=== PATIENT | female | born 1990 | race Asian ===

== ENCOUNTER 2025-04-15 12:04 | Emergency (ER) | payer OTHER, SELFPAY ==
[2025-04-15 12:11] VITALS: BP 140/76; PULSE 106; RESP 22; TEMP 37.1; O2SAT 96; BMI 27.8
--- NOTE | 2025-04-15 12:23 | DI.RAD.S_ITS ---
PROCEDURE: XR CHEST 1V INDICATIONS: sob TECHNIQUE: One view of the chest was acquired. COMPARISON: None. FINDINGS: Surgical changes and devices: None. Lungs and pleura: Lungs are clear. No pleural effusions or pneumothorax. Mediastinum: Mediastinal contours appear normal. Heart size is normal. Bones and chest wall: No suspicious bony lesions. Overlying soft tissues appear unremarkable. IMPRESSION: No acute cardiopulmonary abnormality is seen. Dictated by: Nathaniel Bosch M.D. on 04/15/2025 at 12:55 Approved by: Nathaniel Bosch M.D. on 04/15/2025 at 12:56
--- NOTE | 2025-04-15 12:41 | ED.SOB ---
HPI - SOB/Dyspnea <Adryan Sweeney, DO - Last Filed: 04/15/25 13:18> General Chief Complaint: Shortness of Breath/Dyspnea Stated Complaint: SOB, high BP, congestion, body pain Time Seen by Provider: 04/15/25 12:22 Source: patient Mode of arrival: Ambulatory History of Present Illness HPI Narrative: 34-year-old female presents with cough congestion headache sore throat unrelieved with Sudafed the started yesterday. Patient denies any sick contacts, fever, chills, body aches, nausea, vomiting, diarrhea, abdominal pain, urinary complaints. Other than what is stated 14 point review of system is negative. Related Data Previous Rx's ?Medication ?Instructions ?Recorded albuterol sulfate 90 mcg/actuation 1 inh inhalation Q4-6H PRN 04/15/25 breath activated powder inhaler shortness of breath or wheezing #1 ea prednisone 20 mg tablet 40 mg (2 x 20 mg) PO DAILY 5 days 04/15/25 #10 tabs Allergies Allergy/AdvReac Type Severity Reaction Status Date / Time No Known Drug Allergies Allergy Verified 04/15/25 12:11 Review of Systems <Adryan Sweeney, DO - Last Filed: 04/15/25 13:18> Review of Systems ROS Unobtainable: All systems reviewed & are unremarkable except as noted in HPI and below Patient History <Adryan Sweeney, DO - Last Filed: 04/15/25 13:18> Social History Smoking Status: Never smoker Smoking Status: Never smoker Exam <Adryan Sweeney, DO - Last Filed: 04/15/25 13:18> Narrative Exam Narrative: GENERAL: [34] year old patient appears stated age. Well-developed patient, in mild distress. HEAD: Atraumatic. Normocephalic. EYES: Pupils equal round and reactive. Extraocular motions intact. No scleral icterus. No injection or drainage. ENT: Nose without bleeding, purulent drainage. Throat without erythema, tonsillar hypertrophy or exudate. Airway patent. NECK: Trachea midline. Non tender CARDIOVASCULAR: Regular rate and rhythm without murmurs, gallops, or rubs. RESPIRATORY: Clear to auscultation. Breath sounds equal bilaterally. No wheezes, rales, or rhonchi. GASTROINTESTINAL: Abdomen soft, non-tender, nondistended. EXTREMITIES: No edema or joint tenderness. BACK: Nontender without deformity or crepitance. No flank tenderness. NEURO: AOx3. SKIN: No rash or erythema of visible areas Initial Vital Signs Initial Vital Signs: Vital Signs Temperature 98.8 F 04/15/25 12:11 Pulse Rate 106 H 04/15/25 12:11 Respiratory Rate 22 04/15/25 12:11 Blood Pressure 140/76 04/15/25 12:11 Pulse Oximetry 96 04/15/25 12:11 Oxygen Delivery Method Room Air 04/15/25 12:11 <Meghan Marion PA-C - Last Filed: 04/15/25 15:44> Initial Vital Signs Initial Vital Signs: Vital Signs Temperature 98.8 F 04/15/25 12:11 Pulse Rate 106 H 04/15/25 12:11 Respiratory Rate 22 04/15/25 12:11 Blood Pressure 140/76 04/15/25 12:11 Pulse Oximetry 96 04/15/25 12:11 Oxygen Delivery Method Room Air 04/15/25 12:11 Course <Adryan Sweeney, - Last Filed: 04/15/25 13:18> Orders Ordered: ED Orders 04/15/25 12:23 Chest [XR chest 1V] Stat 04/15/25 12:32 Covid-19 + FLU A/B + RSV - PCR Stat 04/15/25 12:47 CBC Auto Diff [Complete Blood Count AUTO DIFF] Stat CMP [Comprehensive Metabolic Panel] Stat 04/15/25 14:15 Strep Grp A by PCR Rapid Stat Discontinued Medications Sodium Chloride (Normal Saline 0.9%) 1,000 mls @ 1,000 mls/hr IV BOLUS ONE Stop: 04/15/25 15:00 Last Infusion: 04/15/25 14:44 Dose: Infused Documented By: Admin: 04/15/25 14:12 Dose: 1,000 mls/hr Documented By: TOY Ketorolac Tromethamine (Ketorolac 30 Mg/Ml Vial) 15 mg IV NOW ONE Stop: 04/15/25 14:02 Last Admin: 04/15/25 14:11 Dose: 15 mg Documented By: TOY Prednisone (Prednisone 20 Mg Tablet) 40 mg PO NOW ONE Stop: 04/15/25 14:02 Last Admin: 04/15/25 14:11 Dose: 40 mg Documented By: TOY Vital Signs Vital signs: Vital Signs - 8 hr 04/15/25 12:11 04/15/25 15:32 Temperature 98.8 F Pulse Rate 106 H 98 H Respiratory Rate 22 20 Blood Pressure 140/76 132/74 Pulse Oximetry 96 98 Oxygen Delivery Method Room Air Room Air <Meghan Marion PA-C - Last Filed: 04/15/25 15:44> Orders Ordered: ED Orders 04/15/25 12:23 Chest [XR chest 1V] Stat 04/15/25 12:32 Covid-19 + FLU A/B + RSV - PCR Stat 04/15/25 12:47 CBC Auto Diff [Complete Blood Count AUTO DIFF] Stat CMP [Comprehensive Metabolic Panel] Stat 04/15/25 14:15 Strep Grp A by PCR Rapid Stat Discontinued Medications Sodium Chloride (Normal Saline 0.9%) 1,000 mls @ 1,000 mls/hr IV BOLUS ONE Stop: 04/15/25 15:00 Last Infusion: 04/15/25 14:44 Dose: Infused Documented By: Admin: 04/15/25 14:12 Dose: 1,000 mls/hr Documented By: TOY Ketorolac Tromethamine (Ketorolac 30 Mg/Ml Vial) 15 mg IV NOW ONE Stop: 04/15/25 14:02 Last Admin: 04/15/25 14:11 Dose: 15 mg Documented By: TOY Prednisone (Prednisone 20 Mg Tablet) 40 mg PO NOW ONE Stop: 04/15/25 14:02 Last Admin: 04/15/25 14:11 Dose: 40 mg Documented By: TOY Vital Signs Vital signs: Vital Signs - 8 hr 04/15/25 12:11 04/15/25 15:32 Temperature 98.8 F Pulse Rate 106 H 98 H Respiratory Rate 22 20 Blood Pressure 140/76 132/74 Pulse Oximetry 96 98 Oxygen Delivery Method Room Air Room Air MDM - SOB/Dyspnea <Adryan Sweeney DO - Last Filed: 04/15/25 13:18> Lab Data 04/15/25 12:47 04/15/25 12:47 Labs: Lab Results 04/15/25 04/15/25 04/15/25 Range/Units 12:32 12:47 14:15 WBC 6.6 (4.5-11.0) X10^3/uL RBC 4.58 (4.0-5.2) X10^6/uL Hgb 13.4 (12.0-16.0) g/dL Hct 38.8 (36-46) % MCV 84.7 (80-100) fL MCH 29.2 (26-34) PG MCHC 34.4 (30-36) % RDW 13.1 (11.6-14.8) % Plt Count 277 (150-400) X10^3/uL Neut % (Auto) 73.2 (50-75) % Lymph % (Auto) 13.5 L (25-40) % Glades % (Auto) 5.7 (3-14) % Eos % (Auto) 6.8 H (2-4) % Baso % (Auto) 0.8 (0-2) % Neut # (Auto) 4900 (9473-7239) /uL Lymph # (Auto) 900 L (3157-4067) /uL Glades # (Auto) 400 (0-900) /uL Eos # (Auto) 400 (0-450) /uL Baso # (Auto) 100 (0-100) /uL Sodium 138 (137-145) mmol/L Potassium 3.5 (3.4-5.1) mmol/L Chloride 102 (98-107) mmol/L Carbon Dioxide 27 (22-32) mmol/L BUN 8 (7-17) mg/dL Creatinine 0.78 (0.52-1.04) mg/dL Estimated GFR > 60 (>60) mL/min BUN/Creatinine Ratio 10.3 (6-22) Glucose 92 (70-99) mg/dL Calcium 9.1 (8.4-10.2) mg/dL Total Bilirubin 0.6 (0.2-1.3) mg/dL AST 27 (14-36) IU/L ALT 27 (<35) IU/L Alkaline Phosphatase 63 (38-126) U/L Total Protein 8.0 (6.3-8.2) g/dL Albumin 4.7 (3.5-5.0) g/dL Globulin 3.3 (1.7-4.1) g/dL Albumin/Globulin Ratio 1.4 (1.0-2.8) SARS-CoV-2 (PCR) Negative (Negative) Influenza A (RT-PCR) Flu a negative (NEGATIVE) Influenza B (RT-PCR) Flu b negative (NEGATIVE) RSV (PCR) Negative (Negative) Group A Strep (PCR) Negative (Negative) <Meghan Marion PA-C - Last Filed: 04/15/25 15:44> Lab Data Labs: Lab Results 04/15/25 04/15/25 04/15/25 Range/Units 12:32 12:47 14:15 WBC 6.6 (4.5-11.0) X10^3/uL RBC 4.58 (4.0-5.2) X10^6/uL Hgb 13.4 (12.0-16.0) g/dL Hct 38.8 (36-46) % MCV 84.7 (80-100) fL MCH 29.2 (26-34) PG MCHC 34.4 (30-36) % RDW 13.1 (11.6-14.8) % Plt Count 277 (150-400) X10^3/uL Neut % (Auto) 73.2 (50-75) % Lymph % (Auto) 13.5 L (25-40) % Glades % (Auto) 5.7 (3-14) % Eos % (Auto) 6.8 H (2-4) % Baso % (Auto) 0.8 (0-2) % Neut # (Auto) 4900 (4730-0450) /uL Lymph # (Auto) 900 L (6614-8473) /uL Glades # (Auto) 400 (0-900) /uL Eos # (Auto) 400 (0-450) /uL Baso # (Auto) 100 (0-100) /uL Sodium 138 (137-145) mmol/L Potassium 3.5 (3.4-5.1) mmol/L Chloride 102 (98-107) mmol/L Carbon Dioxide 27 (22-32) mmol/L BUN 8 (7-17) mg/dL Creatinine 0.78 (0.52-1.04) mg/dL Estimated GFR > 60 (>60) mL/min BUN/Creatinine Ratio 10.3 (6-22) Glucose 92 (70-99) mg/dL Calcium 9.1 (8.4-10.2) mg/dL Total Bilirubin 0.6 (0.2-1.3) mg/dL AST 27 (14-36) IU/L ALT 27 (<35) IU/L Alkaline Phosphatase 63 (38-126) U/L Total Protein 8.0 (6.3-8.2) g/dL Albumin 4.7 (3.5-5.0) g/dL Globulin 3.3 (1.7-4.1) g/dL Albumin/Globulin Ratio 1.4 (1.0-2.8) SARS-CoV-2 (PCR) Negative (Negative) Influenza A (RT-PCR) Flu a negative (NEGATIVE) Influenza B (RT-PCR) Flu b negative (NEGATIVE) RSV (PCR) Negative (Negative) Group A Strep (PCR) Negative (Negative) Imaging Data chest xr: Radiologist's Impression: PROCEDURE: XR CHEST 1V INDICATIONS: sob TECHNIQUE: One view of the chest was acquired. COMPARISON: None. FINDINGS: Surgical changes and devices: None. Lungs and pleura: Lungs are clear. No pleural effusions or pneumothorax. Mediastinum: Mediastinal contours appear normal. Heart size is normal. Bones and chest wall: No suspicious bony lesions. Overlying soft tissues appear unremarkable. IMPRESSION: No acute cardiopulmonary abnormality is seen. Dictated by: Nathaniel Bosch M.D. on 04/15/2025 at 12:55 Approved by: Nathaniel Bosch M.D. on 04/15/2025 at 12:56 [facility] Narrative Medical decision making narrative: 34-year-old female presents with cough congestion headache sore throat unrelieved with Sudafed the started yesterday. Patient denies any sick contacts, fever, chills, body aches, nausea, vomiting, diarrhea, abdominal pain, urinary complaints. Other than what is stated 14 point review of system is negative. 1350: Patient seen evaluated and orders placed by Dr. Sweeney in the main emergency department, she was then transferred to myself in the fast track area of the emergency department. Chart reviewed. CBC, CMP, chest x-ray, COVID swab ordered. Chest x-ray reveals no acute cardiopulmonary abnormality. CBC reveals normal WBC count 6.6, hemoglobin 13.4, platelets 277. Normal CMP, electrolytes, renal function, liver function. Viral swab negative. No medications ordered prior to my evaluation. On physical exam, patient has a wet cough, mild posterior oropharyngeal erythema. Lungs are clear to auscultation bilaterally, no lower extremity edema, clear TMs bilaterally, she does have sinus congestion bilaterally. No chest pain abdominal pain nausea vomiting diarrhea, dysuria. No concern for . Patient physical exam, history, lab work, imaging consistent with a viral upper respiratory infection. She has been experiencing wheezing at home with increased use of albuterol inhaler, therefore we will treat with prednisone for reactive airway disease, IV fluids for tachycardia Toradol for body aches. 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 1500: On repeat evaluation of patient, heart rate improved to the 90s, normal blood pressure, normal pulse ox. Discussed diagnosis of viral upper respiratory infection, discussed normal course of infection, ER return precautions, she has an appointment with her PCP on Sunday. Recommended staying home from work. Discussed hydration, ibuprofen, Tylenol, prednisone, we will refill her albuterol inhaler as well. Patient verbalized understanding of all information agreeable to plan. She is stable for discharge home, VS checked by myself heart rate 95, BP 117/73, oxygen 96% room air. Discharge Plan Departure Patient Disposition: Home Clinical Impression: Viral sinusitis Upper respiratory infection Qualifiers: URI type: unspecified viral URI Qualified Code(s): J06.9 - Acute upper respiratory infection, unspecified Instructions: DI for Viral Upper Respiratory Infection -- Adult Activity Restrictions/Additional Instructions: Dear Gordo, Thank you for coming to the emergency department. Today you tested negative for COVID, flu a, flu B, RSV, strep throat. Your lab work was all very reassuring and your chest x-ray was normal. Your symptoms are consistent at this time with a viral sinus infection/upper respiratory infection. You have been prescribed a short course of steroids to help with the wheezing that you have been experiencing at night, in addition I have refilled your albuterol inhaler. Please rest, hydrate, use ibuprofen and Tylenol to help with body aches pain/fever, increase hydration and use warm tea with honey to help soothe the throat and thin secretions. Return to the emergency department immediately if you develop difficulty breathing, new or worsening symptoms or any other concerns. Please follow up with your doctor on Sunday as scheduled. Please follow up with your primary care doctor within the next 2-3 days for ER follow-up. (If you do not have a PCP you can call [phone]. ?to schedule an appointment with an [facility] Primary Care Provider) IF YOU DEVELOP ANY NEW OR WORSENING SYMPTOMS, RETURN TO THE ER! Please read the attached instructions, they highlight more specific treatments and interventions for you at home. Thank you for letting me participate in your care, Meghan Marion PA-C Prescriptions: New prednisone 20 mg tablet 40 mg PO DAILY 5 Days Qty: 10 0RF albuterol sulfate 90 mcg/actuation aerosol powdr breath activated 1 inh inhalation Q4-6H PRN (Reason: shortness of breath or wheezing) Qty: 1 0RF Stand Alone Forms: Patient Portal/API, Work Release Note
[2025-04-15 13:05] LABS: Add Manual Diff / Slide Review NO; Hematocrit 38.8 % (36-46); Hemoglobin 13.4 g/dL (12.0-16.0); Lymphocytes Absolute Auto 900 /uL (1100-4500); Mean Corpuscular HGB Conc 34.4 % (30-36); Mean Corpuscular Hemoglobin 29.2 PG (26-34); Mean Corpuscular Volume 84.7 fL (80-100); Platelet Count 277 X10^3/uL (150-400)
[2025-04-15 13:22] LABS: Alanine Aminotransferase 27 IU/L (<35); Albumin 4.7 g/dL (3.5-5.0); Albumin Globulin Ratio 1.4 (1.0-2.8); Alkaline Phosphatase 63 U/L (38-126); Blood Urea Nitrogen 8 mg/dL (7-17); Calcium 9.1 mg/dL (8.4-10.2); Carbon Dioxide 27 mmol/L (22-32); Chloride 102 mmol/L (98-107); Estimated Glomerular Filt Rate > 60 mL/min (>60); Globulin 3.3 g/dL (1.7-4.1); Glucose 92 mg/dL (70-99); HEMOLYSIS < 15 (0-50); Potassium 3.5 mmol/L (3.4-5.1); Sodium 138 mmol/L (137-145); Total Protein 8.0 g/dL (6.3-8.2)
[2025-04-15 13:23] LABS: COVID-19 CEPHEID 4-PLEX PCR Negative (Negative); Influenza A - CEPHEID Flu A NEGATIVE (NEGATIVE); Influenza B - CEPHEID Flu B NEGATIVE (NEGATIVE)
[2025-04-15] MEDS: KETOROLAC 30 MG/ML VIAL 15 MG IV (14:11)
[2025-04-15] MEDS: SODIUM CHLORIDE 0.9% 1,000 ML 1000 ML IV (14:12)
[2025-04-15 14:34] LABS: Strep Grp A by PCR Rapid Negative (Negative)
[2025-04-15 15:32] VITALS: BP 132/74; PULSE 98; RESP 20; O2SAT 98
== END 2025-04-15 15:33 | disposition home or self-care (01) ==
PROVIDERS: Family Medicine; Emergency Provider Physician Assistant
DX: J32.9 Chronic sinusitis, unspecified (principal); J06.9 Acute upper respiratory infection, unspecified; R06.02 Shortness of breath; R00.0 Tachycardia, unspecified
CPT/HCPCS: 71045; 80053; 85025; 87637; 87651; 96361; 96374; 99284; J1885; J7030